=== PATIENT | female | born 1995 | race Caucasian/White ===

== ENCOUNTER 2017-01-23 03:16 | Emergency (ER) | payer OTHER ==
[~2017-01-23] VITALS: Ht 165.1 cm; Wt 48.0 kg
[~2017-01-23 03:16] MED LIST: BACT800T5 PO; CLIN1CAP5 PO; GABA400C5 PO; IBUP800T23 PO; PRED1 PO; TRAZ150T75 PO; XANA0.5T PO
[2017-01-23 03:26] VITALS: BP 122/72; PULSE 105; RESP 14; TEMP 98.4; O2SAT 97
[2017-01-23] MEDS ORDERED: ALPR1TAB3 PO (03:26)
[2017-01-23] MEDS ORDERED: TRAM50TA PO (03:26)
[2017-01-23] MEDS ORDERED: GABA300C5 PO (03:26)
[2017-01-23] MEDS ORDERED: CYCL1TAB29 PO (03:26)
[2017-01-23 03:33] VITALS: BP 122/72; PULSE 91; RESP 16; O2SAT 99
--- NOTE | 2017-01-23 03:56 | PD ---
HPI Chief Complaint: Psychiatric Symptoms Time Seen by Provider: 03:55 Travel History International Travel<30 days: No Contact w/Intl Traveler<30days: No Traveled to known affect area: No History of Present Illness HPI 21-year-old white female presents to emergency department under Moses act by PD. The patient had made suicidal statements at home after having a argument separation from her boyfriend. She states that she has a history of substance abuse. She last used this morning. Her significant other has a anger management problem. He allegedly moved out of their house this morning after an argument. She had made a statement that she no longer wanted to live without her boyfriend. She denies any true suicidal ideation. Denies any active plan on self-harm. No homicidal ideation. She denies any medical complaints. She does smoke cigarettes. Positive alcohol. Currently on Depo- Provera PFSH Past Medical History Narrative Medical Bipolar, anxiety, IV substance abuse, chronic neck pain ADHD: No Bipolar Disorder: Yes Weight (Kg): 3 Anxiety: Yes Depression: Yes Cancer: No Diabetes: No Headaches: No Psychiatric: No Immunizations Current: Yes Migraines: Yes (OCC. WHEN STRESSED.) Seizures: No Thyroid Disease: No Ulcer: No Tetanus Vaccination: < 5 Years ?: Not LMP: irreg Past Surgical History Surgical History: No Previous Surgery Appendectomy: No Section: No Cholecystectomy: No Social History Alcohol Use: Yes (3 xs weekly) Tobacco Use: Yes (1/2 PPD) Substance Use: Yes ( IV DRUG USER) Allergies-Medications (Allergen,Severity, Reaction): Coded Allergies: No Known Allergies (Verified , 01/23/17) Reported Meds & Prescriptions Reported Meds & Active Scripts Active Reported Flexeril (Cyclobenzaprine HCl) 10 Mg Tab 10 Mg PO HS Tramadol (Tramadol HCl) 50 Mg Tab 50 Mg PO TID PRN Gabapentin 300 Mg Cap 300 Mg PO Q6HR Alprazolam 1 Mg Tab 1 Mg PO Q6H PRN Review of Systems Except as stated in HPI: all other systems reviewed are Neg General / Constitutional: No: Fever, Chills Eyes: No: Blurred Vision, Photophobia HENT: Positive: Neck Stiffness, Neck Pain (chronic) Cardiovascular: No: Chest Pain or Discomfort, Palpitations Respiratory: No: Cough, Shortness of Breath Gastrointestinal: No: Nausea, Vomiting Genitourinary: No: Dysuria, Hematuria Musculoskeletal: Positive: Arthralgias, Pain (neck) Skin: No Rash, No Itching Neurologic: No: Weakness, Dizziness Psychiatric: Positive: Anxiety, Depression, Mood Disorder, Substance Abuse, No : Suicidal Ideations, Disorder of Thought, Homicidal Ideation Physical Exam Narrative GENERAL: Well-nourished, well-developed patient. SKIN: Warm and dry. HEAD: Normocephalic and atraumatic. EYES: No scleral icterus. No injection or drainage. ENT: No nasal drainage noted. Mucous membranes pink. Airway patent. NECK: Supple, trachea midline. Moves head freely without obvious discomfort. CARDIOVASCULAR: Regular rate and rhythm without murmurs, gallops, or rubs. RESPIRATORY: Breath sounds equal bilaterally. No accessory muscle use. GASTROINTESTINAL: Abdomen soft, non-tender, nondistended. EXTREMITIES: No cyanosis or edema. BACK: Nontender without obvious deformity. No CVA tenderness. NEURO: Patient is alert and oriented. no sensorimotor deficits. Nonfocal. Normal speech. PSYCH: No delusions. No auditory or visual hallucinations. Data Data Last Documented VS Vital Signs Date Time Temp Pulse Resp B/P Pulse Ox O2 Delivery O2 Flow Rate FiO2 01/23/17 03:33 91 16 122/72 99 Room Air 01/23/17 03:26 98.4 Orders Complete Blood Count With Diff (01/23/17 03:22) Comprehensive Metabolic Panel (01/23/17 03:22) Ed Urine Pregnancytest Poc (01/23/17 03:22) Psych Screen (01/23/17 03:22) Drug Screen, Random Urine (01/23/17 03:22) Alcohol (Ethanol) (01/23/17 03:22) Salicylates (Aspirin) (01/23/17 03:22) Tylenol (Acetaminophen) (01/23/17 03:22) Labs Laboratory Tests Test 01/23/17 01/23/17 04:02 04:20 Urine Opiates Screen POS Urine Barbiturates Screen NEG Urine Amphetamines Screen NEG Urine Benzodiazepines Screen POS Urine Cocaine Screen POS Urine Cannabinoids Screen POS White Blood Count 10.1 TH/MM3 Red Blood Count 5.13 MIL/MM3 Hemoglobin 15.4 GM/DL Hematocrit 45.8 % Mean Corpuscular Volume 89.4 FL Mean Corpuscular Hemoglobin 30.1 PG Mean Corpuscular Hemoglobin 33.7 % Concent Red Cell Distribution Width 13.0 % Platelet Count 311 TH/MM3 Mean Platelet Volume 7.5 FL Neutrophils (%) (Auto) 53.6 % Lymphocytes (%) (Auto) 36.8 % Monocytes (%) (Auto) 5.8 % Eosinophils (%) (Auto) 3.0 % Basophils (%) (Auto) 0.8 % Neutrophils # (Auto) 5.4 TH/MM3 Lymphocytes # (Auto) 3.7 TH/MM3 Monocytes # (Auto) 0.6 TH/MM3 Eosinophils # (Auto) 0.3 TH/MM3 Basophils # (Auto) 0.1 TH/MM3 CBC Comment DIFF FINAL Differential Comment Sodium Level 142 MEQ/L Potassium Level 3.6 MEQ/L Chloride Level 109 MEQ/L Carbon Dioxide Level 25.0 MEQ/L Anion Gap 8 MEQ/L Blood Urea Nitrogen 7 MG/DL Creatinine 0.90 MG/DL Estimat Glomerular Filtration 78 ML/MIN Rate Random Glucose 56 MG/DL Calcium Level 8.9 MG/DL Total Bilirubin 0.5 MG/DL Aspartate Amino Transf 28 U/L (AST/SGOT) Alanine Aminotransferase 41 U/L (ALT/SGPT) Alkaline Phosphatase 86 U/L Total Protein 7.4 GM/DL Albumin 4.2 GM/DL Salicylates Level LESS THAN 1.7 MG/DL Acetaminophen Level LESS THAN 2.0 MCG/ML Ethyl Alcohol Level 27 MG/DL MDM Medical Decision Making Medical Screen Exam Complete: Yes Emergency Medical Condition: Yes Medical Record Reviewed: Yes Interpretation(s) Laboratory Tests Test 01/23/17 01/23/17 04:02 04:20 Urine Opiates Screen POS Urine Barbiturates Screen NEG Urine Amphetamines Screen NEG Urine Benzodiazepines Screen POS Urine Cocaine Screen POS Urine Cannabinoids Screen POS White Blood Count 10.1 TH/MM3 Red Blood Count 5.13 MIL/MM3 Hemoglobin 15.4 GM/DL Hematocrit 45.8 % Mean Corpuscular Volume 89.4 FL Mean Corpuscular Hemoglobin 30.1 PG Mean Corpuscular Hemoglobin 33.7 % Concent Red Cell Distribution Width 13.0 % Platelet Count 311 TH/MM3 Mean Platelet Volume 7.5 FL Neutrophils (%) (Auto) 53.6 % Lymphocytes (%) (Auto) 36.8 % Monocytes (%) (Auto) 5.8 % Eosinophils (%) (Auto) 3.0 % Basophils (%) (Auto) 0.8 % Neutrophils # (Auto) 5.4 TH/MM3 Lymphocytes # (Auto) 3.7 TH/MM3 Monocytes # (Auto) 0.6 TH/MM3 Eosinophils # (Auto) 0.3 TH/MM3 Basophils # (Auto) 0.1 TH/MM3 CBC Comment DIFF FINAL Differential Comment Sodium Level 142 MEQ/L Potassium Level 3.6 MEQ/L Chloride Level 109 MEQ/L Carbon Dioxide Level 25.0 MEQ/L Anion Gap 8 MEQ/L Blood Urea Nitrogen 7 MG/DL Creatinine 0.90 MG/DL Estimat Glomerular Filtration 78 ML/MIN Rate Random Glucose 56 MG/DL Calcium Level 8.9 MG/DL Total Bilirubin 0.5 MG/DL Aspartate Amino Transf 28 U/L (AST/SGOT) Alanine Aminotransferase 41 U/L (ALT/SGPT) Alkaline Phosphatase 86 U/L Total Protein 7.4 GM/DL Albumin 4.2 GM/DL Salicylates Level LESS THAN 1.7 MG/DL Acetaminophen Level LESS THAN 2.0 MCG/ML Ethyl Alcohol Level 27 MG/DL Differential Diagnosis MDM: High Differential diagnoses: Schizophrenia, schizoaffective disorder, bipolar, anxiety, depression, adjustment reaction, mood disorder NOS, ODD, depressive disorder NOS, dementia, dementia with agitation, psychosis NOS, substance induced mood disorder, intermittent explosive disorder, Asperger syndrome, infection,electrolyte abnormality, malingering. Narrative Course Mental health screening discussed with the patient. Psychiatric screen ordered. The patient is been medically cleared. This is adjustment reaction with depressed mood, intravenous drug abuse, medical clearance Diagnosis Primary Impression: Reaction, adjustment, with depressed mood, brief Additional Impressions: Intravenous drug abuse Medical clearance for psychiatric admission Condition: Stable Dakotah Riddle Jan 23, 2017 03:56
[2017-01-23 04:32] LABS: AUTOMATED NEUTROPHIL # 5.4 TH/MM3 (1.8-7.7); BASOPHIL # 0.1 TH/MM3 (0-0.2); BASOPHIL % 0.8 % (0.0-2.0); EOSINOPHIL # 0.3 TH/MM3 (0-0.4); HEMATOCRIT 45.8 % (35.0-46.0); HEMO FLAGS DIFF FINAL; LYMPH % 36.8 % (9.0-44.0); LYMPHOCYTE # 3.7 TH/MM3 (1.0-4.8); MEAN CELL VOLUME 89.4 FL (80.0-100.0); MEAN CORPUSCULAR HEMOGLOBIN 30.1 PG (27.0-34.0); MEAN CORPUSCULAR HGB CONC 33.7 % (32.0-36.0); MONO % 5.8 % (0.0-8.0); NEUT % 53.6 % (16.0-70.0); PLATELET COUNT 311 TH/MM3 (150-450); RED BLOOD COUNT 5.13 MIL/MM3 (4.00-5.30); WHITE BLOOD COUNT 10.1 TH/MM3 (4.0-11.0)
[2017-01-23 04:32] LABS: AMPHETAMINE, URINE NEG (NEG); BARBITURATES, URINE NEG (NEG); COCAINE, URINE POS (NEG)
[2017-01-23 04:49] LABS: ANION GAP 8 MEQ/L (5-15)
[2017-01-23 04:51] LABS: ALKALINE PHOSPHATASE 86 U/L (45-117); ALT (GPT) 41 U/L (10-53); AST (GOT) 28 U/L (15-37); BLOOD UREA NITROGEN 7 MG/DL (7-18); CHLORIDE 109 MEQ/L (98-107); GLOMERULAR FILTRATION RATE 78 ML/MIN (>89); POTASSIUM 3.6 MEQ/L (3.5-5.1); SODIUM (NA) 142 MEQ/L (136-145); TOTAL BILIRUBIN ADULT 0.5 MG/DL (0.2-1.0)
[2017-01-23 04:52] LABS: ACETAMINOPHEN LESS THAN 2.0 MCG/ML (10.0-30.0)
[2017-01-23 06:51] VITALS: BP 118/68; PULSE 88; RESP 14; O2SAT 100
[2017-01-23 08:41] VITALS: BP 116/78; PULSE 78; RESP 16; O2SAT 100
[2017-01-23 10:00] VITALS: BP 108/63; PULSE 76; RESP 18
[2017-01-23 14:11] VITALS: BP 113/72; PULSE 81; RESP 18; O2SAT 100
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
== END 2017-01-23 18:15 | disposition home or self-care (01) ==
LOC: NEPD 03:16 → NEPJ 18:15
DX: F43.25 Adjustment disorder with mixed disturbance of emotions and conduct (principal); F17.200 Nicotine dependence, unspecified, uncomplicated; F19.10 Other psychoactive substance abuse, uncomplicated; Z79.899 Other long term (current) drug therapy
CPT/HCPCS: 80053; 80307; 84703; 85025; 99284